=== PATIENT | female | born 1965 | race Caucasian/White ===

== ENCOUNTER 2017-03-23 13:17 | Emergency (ER) | payer OTHER ==
[~2017-03-23] VITALS: Ht 172.7 cm; Wt 90.7 kg
[2017-03-23 14:43] LABS: BASOPHILS # (AUTO) 0.1 /CMM (0.0-0.2); BASOPHILS % (AUTO) 0.8 % (0.0-2.0); EOSINOPHILS # (AUTO) 0.2 /CMM (0.0-0.7); EOSINOPHILS % (AUTO) 2.7 % (0.0-6.0); HEMATOCRIT 39 % (33-45); HEMOGLOBIN 12.7 g/dL (11.5-14.8); LYMPHOCYTES # (AUTO) 2.8 /CMM (0.8-4.8); LYMPHOCYTES % (AUTO) 33.5 % (20.0-44.0); MEAN CORPUSCULAR HEMOGLOBIN 27 PG (26.0-33.0); MEAN CORPUSCULAR HGB CONC 33 g/dl (31.0-36.0); MEAN CORPUSCULAR VOLUME 83 fL (82-100); MONOCYTES # (AUTO) 0.5 /CMM (0.1-1.30); MONOCYTES % (AUTO) 6.2 % (2.0-12.0); NEUTROPHILS # (AUTO) 4.8 /CMM (1.8-8.9); NEUTROPHILS % (AUTO) 56.8 % (43.0-81.0); PLATELET COUNT (AUTO) 242 /CMM (150-450); RDW COEFFICIENT OF VARIATION 14.1 (11.5-15.0); RED BLOOD CELL COUNT(AUTO) 4.68 MIL/uL (4.0-5.2); WHITE BLOOD COUNT (AUTO) 8.4 K/uL (4.3-11.0)
[2017-03-23 14:46] LABS: CALCIUM, SERUM 8.5 mg/dL (8.5-10.1); CARBON DIOXIDE 25 mmol/L (21-32); CHLORIDE 107 mmol/L (98-107); CREATININE 0.8 mg/dL (0.6-1.3); GLUCOSE 81 mg/dL (74-106); POTASSIUM 3.7 mmol/L (3.5-5.1); SODIUM SERUM 141 mmol/L (136-145); UREA NITROGEN, BLOOD 15 mg/dL (7-18)
[2017-03-23 14:50] LABS: INR 0.95 (0.87-1.13); PROTHROMBIN TIME 9.9 SECS (9.5-12.7)
[2017-03-23 14:55] LABS: TROPONIN I < 0.017 ng/mL (0.00-0.056)
[2017-03-23 16:06] LABS: APPEARANCE,URINE CLEAR (CLEAR); BILIRUBIN,URINE NEGATIVE (NEGATIVE); BLOOD, URINE NEGATIVE Ery/uL (NEGATIVE); COLOR,URINE YELLOW (YELLOW); KETONES,URINE NEGATIVE (NEGATIVE); LEUKOCYTE ESTERASE ,URINE NEGATIVE (NEGATIVE); NITRITE, URINE NEGATIVE (NEGATIVE); PROTEIN,URINE NEGATIVE (NEGATIVE); UGLUCOSE NEGATIVE (NEGATIVE); UROBILINOGEN,URINE 0.2 EU/dL (0.2)
[2017-03-23 16:22] VITALS: BP 107/51
== END 2017-03-23 16:27 | disposition home or self-care (01) ==
LOC: EDUNIT# 13:17 → ER 13:19
DX: R07.89 Other chest pain (principal); R60.0 Localized edema; F32.9 Major depressive disorder, single episode, unspecified
CPT/HCPCS: 36415; 71010; 80048; 81001; 83880; 84484; 85025; 85730; 93005; 99285; A4606; Z7610; 81000-TC

== ENCOUNTER 2018-01-23 19:58 | Inpatient (IN) | payer OTHER ==
[~2018-01-23] VITALS: Ht 160 cm; Wt 78.9 kg
--- NOTE | 2018-01-23 20:05 | NUR ---
TO BED 12 A 52 YO FEMALE PATIENT BIB SELF C/O CHEST PRESSURE WITH NUMBNESS TO L ARM AND L LEG X 4 DAYS, NOTED WITH ANXIETY. PATIENT IS AAOX3, NAD NOTED. VSS. SKIN WARM AND DRY. NONDIAPHORETIC. AMBULATORY. PLACED PATIENT ON MONITOR. COMFORT MEASURES RENDERED.
--- NOTE | 2018-01-23 20:18 | NUR ---
DR GARCIA AT BEDSIDE TO EVALUATE PATIENT.
[2018-01-23] MEDS ORDERED: IV NS 0.9% 1,000 ML BAG IV ONE (20:30)
--- NOTE | 2018-01-23 20:30 | NUR ---
STARTED A SALINE LOCK ON THE LAC G20, BLOOD DRAWN AND SENT TO LAB.
[2018-01-23 20:41] LABS: BASOPHILS % (AUTO) 0.6 % (0.0-2.0); EOSINOPHILS % (AUTO) 2.6 % (0.0-6.0); HEMATOCRIT 40 % (33-45); HEMOGLOBIN 13.3 g/dL (11.5-14.8); LYMPHOCYTES # (AUTO) 3.1 /CMM (0.8-4.8); LYMPHOCYTES % (AUTO) 38.4 % (20.0-44.0); MEAN CORPUSCULAR HGB CONC 34 g/dl (31.0-36.0); MEAN CORPUSCULAR VOLUME 82 fL (82-100); MONOCYTES # (AUTO) 0.6 /CMM (0.1-1.30); MONOCYTES % (AUTO) 6.9 % (2.0-12.0); NEUTROPHILS # (AUTO) 4.3 /CMM (1.8-8.9); NEUTROPHILS % (AUTO) 51.5 % (43.0-81.0); PLATELET COUNT (AUTO) 228 /CMM (150-450); RDW COEFFICIENT OF VARIATION 14.1 (11.5-15.0); RED BLOOD CELL COUNT(AUTO) 4.84 MIL/uL (4.0-5.2); WHITE BLOOD COUNT (AUTO) 8.2 K/uL (4.3-11.0)
[2018-01-23 20:58] LABS: CALCIUM, SERUM 8.7 mg/dL (8.5-10.1); CARBON DIOXIDE 25 mmol/L (21-32); CHLORIDE 108 mmol/L (98-107); CREATININE 0.8 mg/dL (0.6-1.3); GLUCOSE 117 mg/dL (74-106); POTASSIUM 3.8 mmol/L (3.5-5.1); SODIUM SERUM 142 mmol/L (136-145); UREA NITROGEN, BLOOD 16 mg/dL (7-18)
[2018-01-23 21:07] LABS: TROPONIN I < 0.017 ng/mL (0.00-0.056)
[2018-01-23] MEDS ORDERED: TOPI200T PO (21:09)
[2018-01-23 21:18] LABS: CHOLESTEROL 203 mg/dL (<200); HDL CHOLESTEROL 54 mg/dL (40-60); LDL 135 mg/dL (0-99); TRIGLYCERIDES 76 mg/dL (30-150)
--- NOTE | 2018-01-23 21:37 | NUR ---
REPORT GIVEN TO JOSE JUSTICE FOR [facility].
[2018-01-23 21:50] LABS: INR 0.89 (0.85-1.15)
--- NOTE | 2018-01-23 23:55 | NUR ---
TRANSFERRED PATIENT TO TELE BED VIA ALS PROTOCOL, NO INCIDENT NOTED. VSS. NAD NOTED.
[2018-01-24] VITALS: BP 127/76
[2018-01-24] MEDS ORDERED: ZOLPIDEM TARTRATE 5 MG TABLET PO PRN (00:30)
[2018-01-24] MEDS ORDERED: ACETAMINOPHEN 325 MG TABLET PO PRN (00:30)
[2018-01-24] MEDS ORDERED: Potassium Chloride 20 MEQ in IV D5/ 0.9% NACL 1,000 ML IV SCH (00:30)
[2018-01-24] MEDS ORDERED: HYDROCODONE/APAP 5/325MG 1 EACH TABLET PO PRN (00:30)
[2018-01-24] MEDS ORDERED: IV D5/ 0.9% NACL 1,000 ML IV PRN (06:30)
--- NOTE | 2018-01-24 06:33 | NUR ---
MS RN NOTES AWAKE & RESPONSIVE. NOT IN ANY DISTRESS. NO SOB NOTED. DENIES ANY PAIN OR DISCOMFORT AT THIS TIME. WITH IV-HL PATENT & INTACT. MONITORED ACCORDINGLY. CALL LIGHT WITH REACH. BED IN LOWEST POSITION. SR UP X 2 FOR SAFETY. WILL ENDORSE TO NEXT SHIFT.
[2018-01-24 08:00] VITALS: BP 101/53
[2018-01-24] MEDS ORDERED: ASPIRIN EC 81 MG TABLET.DR PO SCH (09:00)
[2018-01-24] MEDS ORDERED: CARVEDILOL 3.125 MG TABLET PO SCH (09:00)
[2018-01-24] MEDS ORDERED: ATORVASTATIN 10 MG TABLET PO SCH (09:00)
--- NOTE | 2018-01-24 09:10 | NUR ---
MANAGER TECHNICAL SALES NOTES A/O X4, COOPERATIVE AND CALM. PATIENT IS CURRENTLY NPO. IVC IN LEFT AC G20 WITH D5 NS INFUSING AT 50ML/HR. DENIES CHEST PAIN, SINUS RHYTHM HR 65 IN THE MONITOR. SEEN BY DR. NUNES AND DR. SCHWARTZ THIS MORNING. PATIENT CONSENTED NM MYOCARDIAL STRESS. CONSENT FORM PLACE IN THE CHART. SAFETY MEASURES IN PLACE.
[2018-01-24 11:20] LABS: BASOPHILS % (AUTO) 0.3 % (0.0-2.0); EOSINOPHILS % (AUTO) 2.5 % (0.0-6.0); HEMATOCRIT 41 % (33-45); HEMOGLOBIN 13.4 g/dL (11.5-14.8); LYMPHOCYTES # (AUTO) 2.5 /CMM (0.8-4.8); LYMPHOCYTES % (AUTO) 35.6 % (20.0-44.0); MEAN CORPUSCULAR HGB CONC 33 g/dl (31.0-36.0); MEAN CORPUSCULAR VOLUME 82 fL (82-100); MONOCYTES # (AUTO) 0.4 /CMM (0.1-1.30); MONOCYTES % (AUTO) 5.6 % (2.0-12.0); NEUTROPHILS # (AUTO) 3.9 /CMM (1.8-8.9); PLATELET COUNT (AUTO) 238 /CMM (150-450); RDW COEFFICIENT OF VARIATION 14.6 (11.5-15.0); RED BLOOD CELL COUNT(AUTO) 4.93 MIL/uL (4.0-5.2)
[2018-01-24] MEDS ORDERED: REGADENOSON 0.4 MG/5 ML DISP.SYRIN IVP ONE (11:30)
[2018-01-24 11:33] LABS: CALCIUM, SERUM 8.8 mg/dL (8.5-10.1); CREATININE 0.7 mg/dL (0.6-1.3); POTASSIUM 3.7 mmol/L (3.5-5.1)
--- NOTE | 2018-01-24 13:23 | NUR ---
PATIENT REQUESTING TO HAVE CAROTID US, LEFT NECK EXTENDING TO LEFT MID CLAVICULAR AREA SLIGHTLY SWELLING. DENIES PAIN AND PER PATIENT SHES MILDLY DIZZY FOR NOT EATING SINCE LAST NIGHT FOR PROCEDURE STRESS TEST THIS MORNING. NOTIFIED DR. SCHWARTZ, CAROTID DUPLEX IMAGING STAT. CHARGE NURSE IS AWARE.
[2018-01-24 16:00] VITALS: BP 114/70
[2018-01-24 16:11] VITALS: BP 114/70
--- NOTE | 2018-01-24 18:34 | NUR ---
MS RN CLOSING NOTES TEOFILO, CAROTID DUPLEX RESULTED NEGATIVE, CALLED DR. SCHWARTZ WITH RESULT. PATIENT VS REMAINS STABLE, DENIES PAIN. AMBULATORY, SKIN INTACT. DISCHARGE INSTRUCTION GIVEN TO THE PATIENT, VERBALIZED UNDERSTANDING. PERSONAL BELONGINGS CHECKED. PATIENT WILL BE LEAVING HOSPITAL AT 7:30PM, BOYFRIEND TO [employer]. IVC IN RIGHT HAND TO BE REMOVED PRIOR DISCHARGE. SAFETY MEASURES IN PLACE. WILL ENDORSE TO ONCOMING RN.
--- NOTE | 2018-01-24 19:05 | NUR ---
MS RN Opening Notes Received pt sitting at the edge of bed. Awake and responsive. Respirations are even and unlabored, not in any acute distress noted. Denies any pain, SOB, N/V. IV site intact, no infiltration noted. Dressing kept clean and dry. Safety measures are in place. Instructed pt to use call light when assistance is needed, call light is left within reach.
--- NOTE | 2018-01-24 19:20 | NUR ---
MS SENIOR PRINCIPAL PROCESS ENGINEER NOTE 1920 PT DISCHARGED FROM [facility]. PT REMAINS ALERT A/OX4, RESPIRATIONS ARE EVEN AND UNLABORED, NOT IN ANY ACUTE DISTRESS NOTED. DENIES ANY PAIN, SOB, N/V AT THIS TIME. IV REMOVED FROM RIGHT HAND, APPLIED PRESSURE AND TOLERATED WELL. PT STATED THE DAY SHIFT NURSE HAD EXPLAINED ALL DISCHARGE PAPERWORK. PT STATED SHE HAD NO CONCERNS OR QUESTIONS AT THIS TIME. ALL BELONGINGS TAKEN WITH PT AND ACCOMPANIED PT TO VEHICLE. PT LEFT IN STABLE CONDITION.
== END 2018-01-24 19:23 | disposition home or self-care (01) | DRG 203 ==
LOC: ER 19:59 → TELE 23:16 → MED 01-24 08:55
PROVIDERS: ADMIT Internal Medicine; ATTEND Internal Medicine
DX: R07.89 Other chest pain (principal); Z87.891 Personal history of nicotine dependence; Z82.49 Family history of ischemic heart disease and other diseases of the circulatory system; Z83.3 Family history of diabetes mellitus; Z79.899 Other long term (current) drug therapy
CPT/HCPCS: 36415; 71045-TC; 80048-TC; 80061-TC; 84484-TC; 84703-TC; 85025-TC; 85730-TC; 87081-TC; 93307-TC; 93880-TC; A4606; A9502; J2785; J3480; J7030; J7042; Z7610

== ENCOUNTER 2025-09-01 15:43 | Emergency (ER) | payer OTHER ==
[~2025-09-01] VITALS: Ht 162.6 cm; Wt 86.2 kg
[~2025-09-01 15:43] MED LIST: TOPI200T PO
[2025-09-01 15:52] VITALS: BP 132/81; TEMP 98.3; O2SAT 97
== END 2025-09-01 17:19 | disposition home or self-care (01) ==
LOC: ER 15:51
DX: S50.312A Abrasion of left elbow, initial encounter (principal); M79.672 Pain in left foot; F31.9 Bipolar disorder, unspecified; I51.9 Heart disease, unspecified; F17.200 Nicotine dependence, unspecified, uncomplicated; W10.9XXA Fall (on) (from) unspecified stairs and steps, initial encounter; Y93.89 Activity, other specified; Y92.89 Other specified places as the place of occurrence of the external cause; Y99.8 Other external cause status
CPT/HCPCS: 73630-TC